=== PATIENT | female | born 1970 | race Two or more races ===

== ENCOUNTER 2017-11-09 18:28 | Inpatient (IN) | payer MEDICAID ==
[~2017-11-09] VITALS: Ht 157.5 cm; Wt 79.8 kg
[~2017-11-09 18:28] MED LIST: ALBU18; FURO40TA4; GABA300C10; HCTZ25T; INSLANTI; INSLISPI; LOSA50TA6; MET25T; NAP500T; POTA8TAB15; SEVE800T8 PO; [UNRECOGNIZED DRUG - CODE]; [UNRECOGNIZED DRUG - CODE]
[2017-11-09] MEDS ORDERED: ONDANSETRON HCL 4 MG/2 ML VIAL IV ONE (19:15)
[2017-11-09 19:40] LABS: Basophils # (auto) 0 uL; Basophils % (auto) 0.6 % (0.0-2.0); Eosinophils # (auto) 0.2 uL; Eosinophils % (auto) 3.5 % (0.0-7.0); Hematocrit 36.2 % (36.0-46.0); Hemoglobin 11.9 g/dL (12.2-16.2); Lymphocytes # (auto) 1.1 uL; Mean Corpuscular Hemoglobin 28.8 pg (28.0-32.0); Mean Corpuscular Hgb Conc. 32.8 g/dL (32.0-36.0); Mean Corpuscular Volume 87.7 fL (80.0-100.0); Monocytes # (auto) 0.2 uL; Neutrophils # (auto) 4.4 uL; Neutrophils % (auto) 73.9 % (37.0-80.0); Nucleated Red Blood Cells % 0.1 %; Platelet Count (auto) 244 10^3/uL (140-450); Red Blood Cells 4.13 10^6/uL (4.0-5.20); Red Cell Distribution Width 18.5 % (11.8-14.3); White Blood Cell 5.9 10^3/uL (4.4-10.8)
[2017-11-09] MEDS ORDERED: FUROSEMIDE 20 MG/2 ML VIAL IV ONE (19:45)
[2017-11-09 19:48] LABS: Alanine Aminotransferase 19 U/L (13-56); Albumin 3.5 g/dL (3.4-5.0); Anion Gap 19 (5-15); Aspartate Aminotransferase 19 U/L (15-37); BUN/Creatinine Ratio 10.1; Calcium 8.5 mg/dL (8.5-10.1); Carbon Dioxide 22 mmol/L (21-32); Chloride 96 mmol/L (98-107); GFR African American 7 mL/min; GFR Non-African American 6 mL/min; Glucose 100 mg/dL (74-106); Sodium 137 mmol/L (136-145)
[2017-11-09 19:52] LABS: INR 1.04 (0.9-1.15); Prothrombin Time 11.1 sec (9.27-12.13)
[2017-11-09 19:53] LABS: Alkaline Phosphatase 165 U/L (45-117); Bilirubin, Total 0.4 mg/dL (0.2-1.0); Blood Urea Nitrogen 83 mg/dL (7-18); Potassium 7.4 mmol/L (3.5-5.1); Total Protein 9.2 g/dL (6.4-8.2)
[2017-11-09] MEDS ORDERED: SODIUM BICARBONATE 8.4% INJ 50ML SYRINGE IV ONE (20:00)
[2017-11-09] MEDS ORDERED: SODIUM POLYSTYRENE SULF 15GM/60ML SUSP PO ONE (20:00)
[2017-11-09] MEDS ORDERED: DEXTROSE (50%) 50ML SYRG IV ONE (20:00)
[2017-11-09] MEDS ORDERED: InsuLIN REG 1unit/0.01ml Soln (100units/ml) IV ONE (20:00)
[2017-11-09] MEDS ORDERED: CALCIUM GLUC 4.65meq/50ml D5AE 50 ML IV ONE (20:00)
[2017-11-09 20:52] LABS: Urine Bacteria MOD /hpf (None Seen); Urine Blood 1+ /uL (Negative); Urine Specific Gravity 1.017 (1.001-1.035); Urine WBC 12 /hpf (0 - 5)
[2017-11-09] MEDS ORDERED: ONDANSETRON HCL 4 MG/2 ML VIAL IV PRN (22:15)
[2017-11-09] MEDS ORDERED: LORazepam 0.5 MG TAB PO PRN (22:15)
[2017-11-09] MEDS ORDERED: ALBUTEROL SULF 2.5 MG/0.5ML(0.5%) NEB SOLN NEB PRN (22:15)
[2017-11-09] MEDS: AMITRIPTYLINE HCL 25 MG TAB PO SCH (22:37)
[2017-11-09 23:22] VITALS: BP 179/101
[2017-11-10] VITALS (70 sets, daily range): BP systolic 100–200; BP diastolic 61–117
[2017-11-10] MEDS ORDERED: PROPOFOL 100 ML IV ONE (05:39)
[2017-11-10] MEDS ORDERED: PROPOFOL 100 ML IV SCH (05:42)
[2017-11-10 05:43] LABS: Basophils # (auto) 0 uL; Basophils % (auto) 0.6 % (0.0-2.0); Eosinophils # (auto) 0.1 uL; Eosinophils % (auto) 1.4 % (0.0-7.0); Hematocrit 33.9 % (36.0-46.0); Hemoglobin 11.1 g/dL (12.2-16.2); Lymphocytes # (auto) 1.1 uL; Lymphocytes % (auto) 17.3 % (10.0-50.0); Mean Corpuscular Hgb Conc. 32.9 g/dL (32.0-36.0); Mean Corpuscular Volume 88.4 fL (80.0-100.0); Monocytes # (auto) 0.3 uL; Neutrophils # (auto) 4.7 uL; Neutrophils % (auto) 75.7 % (37.0-80.0); Platelet Count (auto) 219 10^3/uL (140-450); Red Blood Cells 3.84 10^6/uL (4.0-5.20); Red Cell Distribution Width 18.1 % (11.8-14.3); White Blood Cell 6.3 10^3/uL (4.4-10.8)
[2017-11-10] MEDS: PROPOFOL 100 ML IV SCH ×5 (06:00→22:16)
[2017-11-10 06:08] LABS: BUN/Creatinine Ratio 10.3; Calcium 8.6 mg/dL (8.5-10.1)
[2017-11-10 06:12] LABS: Potassium 8.5 mmol/L (3.5-5.1)
[2017-11-10] MEDS ORDERED: InsuLIN REG 1unit/0.01ml Soln (100units/ml) IV ONE ×2 (06:30→13:15)
[2017-11-10] MEDS ORDERED: DEXTROSE (50%) 50ML SYRG IV ONE ×2 (06:30→13:15)
[2017-11-10] MEDS ORDERED: SODIUM POLYSTYRENE SULF 15GM/60ML SUSP PO ONE (06:30)
[2017-11-10] MEDS ORDERED: CALCIUM GLUC 4.65meq/50ml D5AE 50 ML IV ONE ×2 (06:30→13:15)
[2017-11-10] MEDS ORDERED: SODIUM BICARBONATE 8.4% INJ 50ML SYRINGE IV ONE ×2 (06:30→16:13)
[2017-11-10] MEDS ORDERED: ALBUTEROL SULF 2.5 MG/0.5ML(0.5%) NEB SOLN HHN STA (06:39)
[2017-11-10] MEDS ORDERED: MIDAZOLAM DRIP 50 mg/50mL 50 ML IV ONE (06:47)
[2017-11-10] MEDS: InsuLIN REG 1unit/0.01ml Soln (100units/ml) SC SCH ×4 (07:00→22:00)
[2017-11-10] MEDS: MIDAZOLAM DRIP 50 mg/50mL 50 ML IV SCH ×5 (07:02→17:03)
[2017-11-10] MEDS: ACCU-CHEK COMFORT CURVE STRIP VI SCH ×4 (07:11→22:16)
[2017-11-10] MEDS ORDERED: EPOETIN ALFA 3,000 UNIT/1 ML VIAL IV ONE ×2 (08:00→11:15)
[2017-11-10] MEDS: NIFEdipine ER 30 MG TAB PO SCH (10:00)
[2017-11-10] MEDS: GABAPENTIN 100 MG CAP PO SCH (12:20)
[2017-11-10] MEDS: cefTRIAXone 1GM/10ml IVPUSH 10 ML IV SCH (12:21)
[2017-11-10] MEDS ORDERED: EPOETIN ALFA 10,000 UNIT/1 ML VIAL IV ONE (13:00)
[2017-11-10] MEDS ORDERED: SODIUM BICARBONATE 8.4 % INJ 50ML VIAL IV ONE (13:15)
[2017-11-10] MEDS ORDERED: SODIUM POLYSTYRENE SULF 15GM/60ML SUSP NG ONE (13:15)
[2017-11-10] MEDS ORDERED: BUME1TAB PO (15:29)
[2017-11-10] MEDS ORDERED: LORA1TAB12 PO (15:35)
[2017-11-10] MEDS ORDERED: OME20GT GT (15:35)
[2017-11-10] MEDS ORDERED: LORA-654 GT (15:35)
[2017-11-10] MEDS ORDERED: NIFE60TA59 PO (15:35)
[2017-11-10] MEDS ORDERED: EPINEPHrine HCL 1 MG/10 ML SYRG IV ONE (16:13)
[2017-11-10] MEDS: AMITRIPTYLINE HCL 25 MG TAB PO SCH (22:16)
[2017-11-10] MEDS: DEXTROSE (50%) 50ML SYRG IV PRN (22:20)
[2017-11-11] VITALS (100 sets, daily range): BP systolic 70–177; BP diastolic 55–112
[2017-11-11] MEDS: PROPOFOL 100 ML IV SCH ×3 (02:34→10:45)
[2017-11-11] MEDS: MIDAZOLAM DRIP 50 mg/50mL 50 ML IV SCH ×2 (04:31→13:02)
[2017-11-11 04:47] LABS: Basophils # (auto) 0.1 uL; Basophils % (auto) 1.3 % (0.0-2.0); Eosinophils # (auto) 0.2 uL; Eosinophils % (auto) 3.9 % (0.0-7.0); Hematocrit 31.7 % (36.0-46.0); Hemoglobin 10.5 g/dL (12.2-16.2); Lymphocytes # (auto) 1.1 uL; Lymphocytes % (auto) 20.5 % (10.0-50.0); Mean Corpuscular Hgb Conc. 33.2 g/dL (32.0-36.0); Mean Corpuscular Volume 87.3 fL (80.0-100.0); Monocytes # (auto) 0.2 uL; Monocytes % (auto) 4.8 % (0.0-12.0); Neutrophils # (auto) 3.6 uL; Neutrophils % (auto) 69.5 % (37.0-80.0); Nucleated Red Blood Cells % 0.1 %; Platelet Count (auto) 178 10^3/uL (140-450); Red Blood Cells 3.63 10^6/uL (4.0-5.20); Red Cell Distribution Width 18.6 % (11.8-14.3); White Blood Cell 5.2 10^3/uL (4.4-10.8)
[2017-11-11 05:03] LABS: Albumin 2.6 g/dL (3.4-5.0); BUN/Creatinine Ratio 8.5; Calcium 7.9 mg/dL (8.5-10.1)
[2017-11-11 05:06] LABS: Bilirubin, Total 0.4 mg/dL (0.2-1.0); Total Protein 7.3 g/dL (6.4-8.2)
[2017-11-11] MEDS: InsuLIN REG 1unit/0.01ml Soln (100units/ml) SC SCH ×4 (05:55→22:00)
[2017-11-11] MEDS: ACCU-CHEK COMFORT CURVE STRIP VI SCH ×4 (05:55→22:00)
[2017-11-11] MEDS ORDERED: SODIUM CHL 0.9% 1000 ML BAG XX ONE (09:00)
[2017-11-11] MEDS: cefTRIAXone 1GM/10ml IVPUSH 10 ML IV SCH (09:16)
[2017-11-11] MEDS: NIFEdipine ER 30 MG TAB PO SCH (10:00)
[2017-11-11] MEDS ORDERED: PANTOPRAZOLE 40 MG/10 ML VIAL IV ONE (10:45)
[2017-11-11] MEDS ORDERED: EPOETIN ALFA 10,000 UNIT/1 ML VIAL IV ONE (11:00)
[2017-11-11] MEDS ORDERED: Novasource Renal 1 Liter GT SCH (12:15)
[2017-11-11] MEDS: GABAPENTIN 100 MG CAP PO SCH (14:05)
[2017-11-11] MEDS: AMITRIPTYLINE HCL 25 MG TAB PO SCH (22:00)
[2017-11-12] VITALS (94 sets, daily range): BP systolic 99–170; BP diastolic 57–93
[2017-11-12] MEDS: PROPOFOL 100 ML IV SCH ×2 (00:30→06:40)
[2017-11-12 03:36] LABS: Basophils # (auto) 0 uL; Basophils % (auto) 0.6 % (0.0-2.0); Eosinophils # (auto) 0.1 uL; Eosinophils % (auto) 1.5 % (0.0-7.0); Hematocrit 30.3 % (36.0-46.0); Lymphocytes # (auto) 0.9 uL; Lymphocytes % (auto) 11.2 % (10.0-50.0); Mean Corpuscular Hemoglobin 28.6 pg (28.0-32.0); Mean Corpuscular Volume 86.5 fL (80.0-100.0); Monocytes # (auto) 0.4 uL; Monocytes % (auto) 4.6 % (0.0-12.0); Neutrophils # (auto) 6.7 uL; Neutrophils % (auto) 82.1 % (37.0-80.0); Nucleated Red Blood Cells % 0.1 %; Platelet Count (auto) 176 10^3/uL (140-450); Red Cell Distribution Width 17.8 % (11.8-14.3); White Blood Cell 8.1 10^3/uL (4.4-10.8)
[2017-11-12 03:53] LABS: Albumin 2.4 g/dL (3.4-5.0); BUN/Creatinine Ratio 6.5; Calcium 7.3 mg/dL (8.5-10.1)
[2017-11-12 03:56] LABS: Bilirubin, Total 0.3 mg/dL (0.2-1.0); Total Protein 7.1 g/dL (6.4-8.2)
[2017-11-12] MEDS: InsuLIN REG 1unit/0.01ml Soln (100units/ml) SC SCH ×4 (06:43→21:53)
[2017-11-12] MEDS: ACCU-CHEK COMFORT CURVE STRIP VI SCH ×4 (06:43→21:53)
[2017-11-12] MEDS: cefTRIAXone 1GM/10ml IVPUSH 10 ML IV SCH (08:54)
[2017-11-12] MEDS: PANTOPRAZOLE 40 MG/10 ML VIAL IV SCH (09:57)
[2017-11-12] MEDS: GABAPENTIN 100 MG CAP PO SCH (09:57)
[2017-11-12] MEDS: NIFEdipine ER 30 MG TAB PO SCH (09:57)
[2017-11-12] MEDS: LABETALOL HCL 5 MG/ML ML 20ML VIAL IV PRN ×2 (10:20→21:42)
[2017-11-12] MEDS: DEXTROSE (50%) 50ML SYRG IV PRN (11:33)
[2017-11-12] MEDS: LORazepam 0.5 MG TAB PO PRN (16:15)
[2017-11-12] MEDS: AMITRIPTYLINE HCL 25 MG TAB PO SCH (21:44)
[2017-11-13] VITALS (70 sets, daily range): BP systolic 119–188; BP diastolic 63–87
[2017-11-13] MEDS: LABETALOL HCL 5 MG/ML ML 20ML VIAL IV PRN ×3 (00:36→20:32)
[2017-11-13 03:56] LABS: Basophils # (auto) 0 uL; Basophils % (auto) 0.4 % (0.0-2.0); Eosinophils # (auto) 0.2 uL; Eosinophils % (auto) 1.9 % (0.0-7.0); Hematocrit 27.9 % (36.0-46.0); Hemoglobin 9.3 g/dL (12.2-16.2); Lymphocytes # (auto) 1.2 uL; Lymphocytes % (auto) 12.8 % (10.0-50.0); Mean Corpuscular Hemoglobin 28.5 pg (28.0-32.0); Mean Corpuscular Hgb Conc. 33.2 g/dL (32.0-36.0); Monocytes # (auto) 0.5 uL; Monocytes % (auto) 5.4 % (0.0-12.0); Neutrophils # (auto) 7.5 uL; Neutrophils % (auto) 79.5 % (37.0-80.0); Nucleated Red Blood Cells % 0.1 %; Platelet Count (auto) 182 10^3/uL (140-450); Red Blood Cells 3.25 10^6/uL (4.0-5.20); Red Cell Distribution Width 17.2 % (11.8-14.3); White Blood Cell 9.4 10^3/uL (4.4-10.8)
[2017-11-13 04:11] LABS: Albumin 2.3 g/dL (3.4-5.0); BUN/Creatinine Ratio 7.3; Calcium 7.9 mg/dL (8.5-10.1); Potassium 4.2 mmol/L (3.5-5.1)
[2017-11-13 04:13] LABS: Bilirubin, Total 0.5 mg/dL (0.2-1.0)
[2017-11-13] MEDS: InsuLIN REG 1unit/0.01ml Soln (100units/ml) SC SCH ×3 (06:44→22:06)
[2017-11-13] MEDS: ACCU-CHEK COMFORT CURVE STRIP VI SCH ×3 (06:44→22:06)
[2017-11-13] MEDS: MIDAZOLAM DRIP 50 mg/50mL 50 ML IV SCH (06:56)
[2017-11-13] MEDS ORDERED: HYDROmorphone HCL 2 MG/ML VL IV PRN (07:45)
[2017-11-13] MEDS: NIFEdipine ER 30 MG TAB PO SCH (08:52)
[2017-11-13] MEDS: cefTRIAXone 1GM/10ml IVPUSH 10 ML IV SCH (08:59)
[2017-11-13] MEDS: MORPHINE SULF INJ 2 MG/ML SYRINGE 1ML IV PRN (09:20)
[2017-11-13] MEDS: GABAPENTIN 100 MG CAP PO SCH (09:27)
[2017-11-13] MEDS: PANTOPRAZOLE 40 MG/10 ML VIAL IV SCH (09:27)
[2017-11-13] MEDS ORDERED: EPOETIN ALFA 3,000 UNIT/1 ML VIAL IV ONE (13:00)
[2017-11-13] MEDS ORDERED: EPOETIN ALFA 2,000 UNIT/1 ML VIAL IV ONE (13:15)
[2017-11-13] MEDS: ACETAMINOPHEN 500 MG TAB PO PRN (20:15)
[2017-11-13] MEDS: AMITRIPTYLINE HCL 25 MG TAB PO SCH (22:05)
[2017-11-14] VITALS (11 sets, daily range): BP systolic 96–181; BP diastolic 54–95
[2017-11-14] MEDS: LABETALOL HCL 5 MG/ML ML 20ML VIAL IV PRN ×2 (03:44→06:21)
[2017-11-14] MEDS: ACCU-CHEK COMFORT CURVE STRIP VI SCH ×4 (06:21→21:43)
[2017-11-14] MEDS: InsuLIN REG 1unit/0.01ml Soln (100units/ml) SC SCH ×4 (06:22→21:44)
[2017-11-14 06:43] LABS: Basophils # (auto) 0 uL; Basophils % (auto) 0.4 % (0.0-2.0); Eosinophils # (auto) 0.3 uL; Eosinophils % (auto) 3.9 % (0.0-7.0); Hematocrit 29.3 % (36.0-46.0); Hemoglobin 9.6 g/dL (12.2-16.2); Lymphocytes # (auto) 1.1 uL; Lymphocytes % (auto) 17.4 % (10.0-50.0); Mean Corpuscular Hemoglobin 28.6 pg (28.0-32.0); Mean Corpuscular Hgb Conc. 32.8 g/dL (32.0-36.0); Mean Corpuscular Volume 87.3 fL (80.0-100.0); Monocytes # (auto) 0.4 uL; Monocytes % (auto) 6.5 % (0.0-12.0); Neutrophils # (auto) 4.7 uL; Neutrophils % (auto) 71.8 % (37.0-80.0); Platelet Count (auto) 219 10^3/uL (140-450); Red Blood Cells 3.36 10^6/uL (4.0-5.20); Red Cell Distribution Width 16.9 % (11.8-14.3); White Blood Cell 6.5 10^3/uL (4.4-10.8)
[2017-11-14 06:59] LABS: Calcium 8.2 mg/dL (8.5-10.1); Potassium 4.1 mmol/L (3.5-5.1)
[2017-11-14] MEDS: cefTRIAXone 1GM/10ml IVPUSH 10 ML IV SCH (09:25)
[2017-11-14] MEDS: PANTOPRAZOLE 40 MG/10 ML VIAL IV SCH (10:07)
[2017-11-14] MEDS: NIFEdipine ER 30 MG TAB PO SCH (10:08)
[2017-11-14] MEDS: GABAPENTIN 100 MG CAP PO SCH (10:09)
[2017-11-14] MEDS: ACETAMINOPHEN 500 MG TAB PO PRN (15:34)
[2017-11-14] MEDS: LORazepam 0.5 MG TAB PO PRN (20:43)
[2017-11-14] MEDS: AMITRIPTYLINE HCL 25 MG TAB PO SCH (21:44)
[2017-11-15] VITALS (7 sets, daily range): BP systolic 112–161; BP diastolic 56–121
[2017-11-15 05:44] LABS: Calcium 8.6 mg/dL (8.5-10.1); Potassium 5.2 mmol/L (3.5-5.1)
[2017-11-15 05:46] LABS: BUN/Creatinine Ratio 7.3
[2017-11-15] MEDS: ACETAMINOPHEN 500 MG TAB PO PRN (06:21)
[2017-11-15] MEDS: ACCU-CHEK COMFORT CURVE STRIP VI SCH ×4 (06:32→21:27)
[2017-11-15] MEDS: InsuLIN REG 1unit/0.01ml Soln (100units/ml) SC SCH ×4 (06:33→21:32)
[2017-11-15] MEDS: GABAPENTIN 100 MG CAP PO SCH (10:00)
[2017-11-15] MEDS: cefTRIAXone 1GM/10ml IVPUSH 10 ML IV SCH (11:00)
[2017-11-15] MEDS: PANTOPRAZOLE 40 MG/10 ML VIAL IV SCH (11:01)
[2017-11-15] MEDS: NIFEdipine ER 30 MG TAB PO SCH (14:15)
[2017-11-15] MEDS ORDERED: PROMETHAZINE-DM 5 ML ORAL SYRUP GT PRN (15:45)
[2017-11-15] MEDS: PROMETHAZINE-DM 5 ML ORAL SYRUP PO PRN ×2 (16:48→21:56)
[2017-11-15] MEDS: AMITRIPTYLINE HCL 25 MG TAB PO SCH (21:26)
[2017-11-15] MEDS: MORPHINE SULF INJ 2 MG/ML SYRINGE 1ML IV PRN (23:25)
[2017-11-16] VITALS: BP 148/85
[2017-11-16 03:34] VITALS: BP 151/85
[2017-11-16 05:12] LABS: Basophils # (auto) 0 uL; Basophils % (auto) 0.7 % (0.0-2.0); Eosinophils # (auto) 0.4 uL; Hematocrit 31.9 % (36.0-46.0); Hemoglobin 10.4 g/dL (12.2-16.2); Lymphocytes # (auto) 1.6 uL; Lymphocytes % (auto) 30.4 % (10.0-50.0); Mean Corpuscular Hemoglobin 28.1 pg (28.0-32.0); Mean Corpuscular Hgb Conc. 32.5 g/dL (32.0-36.0); Mean Corpuscular Volume 86.4 fL (80.0-100.0); Monocytes # (auto) 0.4 uL; Monocytes % (auto) 8.1 % (0.0-12.0); Neutrophils # (auto) 2.8 uL; Neutrophils % (auto) 53.8 % (37.0-80.0); Nucleated Red Blood Cells % 0.1 %; Platelet Count (auto) 288 10^3/uL (140-450); Red Cell Distribution Width 16.5 % (11.8-14.3); White Blood Cell 5.2 10^3/uL (4.4-10.8)
[2017-11-16 05:33] LABS: Albumin 2.5 g/dL (3.4-5.0); BUN/Creatinine Ratio 8.5; Bilirubin, Total 0.4 mg/dL (0.2-1.0); Calcium 8.9 mg/dL (8.5-10.1); Potassium 5.1 mmol/L (3.5-5.1); Total Protein 7.5 g/dL (6.4-8.2)
[2017-11-16] MEDS: ACCU-CHEK COMFORT CURVE STRIP VI SCH ×2 (06:36→12:03)
[2017-11-16] MEDS: InsuLIN REG 1unit/0.01ml Soln (100units/ml) SC SCH ×2 (06:40→12:03)
[2017-11-16] MEDS: MORPHINE SULF INJ 2 MG/ML SYRINGE 1ML IV PRN (08:42)
[2017-11-16] MEDS: PROMETHAZINE-DM 5 ML ORAL SYRUP PO PRN (08:42)
[2017-11-16 09:00] VITALS: BP 132/80
[2017-11-16 11:51] VITALS: BP 141/84
[2017-11-16] MEDS: PANTOPRAZOLE 40 MG/10 ML VIAL IV SCH (11:58)
[2017-11-16] MEDS: NIFEdipine ER 30 MG TAB PO SCH (12:01)
[2017-11-16] MEDS: cefTRIAXone 1GM/10ml IVPUSH 10 ML IV SCH (12:02)
[2017-11-16] MEDS: GABAPENTIN 100 MG CAP PO SCH (12:02)
[2017-11-16 16:00] VITALS: BP 142/81
== END 2017-11-16 18:54 | disposition home or self-care (01) | DRG 466 ==
LOC: ER 18:28 → TELE 18:29 → ICU WEST 11-10 08:13 → DOU IN ICU 11-14 06:01
PROVIDERS: ADMIT Nurse Practitioner Family; ATTEND Internal Medicine
PROC: 0BH17EZ Insertion of Endotracheal Airway into Trachea, Via Natural or Artificial Opening (ICD-10-PCS; principal; 2017-11-10)
PROC: 5A1945Z Respiratory Ventilation, 24-96 Consecutive Hours (ICD-10-PCS; 2017-11-10)
PROC: 5A1D70Z Performance of Urinary Filtration, Intermittent, Less than 6 Hours Per Day (ICD-10-PCS; 2017-11-10)
PROC: 5A09357 Assistance with Respiratory Ventilation, Less than 24 Consecutive Hours, Continuous Positive Airway Pressure (ICD-10-PCS; 2017-11-10)
PROC: 5A1D70Z Performance of Urinary Filtration, Intermittent, Less than 6 Hours Per Day (ICD-10-PCS; 2017-11-11)
PROC: 02HV33Z Insertion of Infusion Device into Superior Vena Cava, Percutaneous Approach (ICD-10-PCS; 2017-11-12)
PROC: 5A1D70Z Performance of Urinary Filtration, Intermittent, Less than 6 Hours Per Day (ICD-10-PCS; 2017-11-13)
PROC: 5A1D70Z Performance of Urinary Filtration, Intermittent, Less than 6 Hours Per Day (ICD-10-PCS; 2017-11-16)
DX: T82.898A Other specified complication of vascular prosthetic devices, implants and grafts, initial encounter (principal); N18.6 End stage renal disease; J96.01 Acute respiratory failure with hypoxia; I46.9 Cardiac arrest, cause unspecified; E43 Unspecified severe protein-calorie malnutrition; I13.2 Hypertensive heart and chronic kidney disease with heart failure and with stage 5 chronic kidney disease, or end stage renal disease; I48.91 Unspecified atrial fibrillation; E11.21 Type 2 diabetes mellitus with diabetic nephropathy; E87.70 Fluid overload, unspecified; E11.22 Type 2 diabetes mellitus with diabetic chronic kidney disease; E87.5 Hyperkalemia; N39.0 Urinary tract infection, site not specified; I50.9 Heart failure, unspecified; Y83.2 Surgical operation with anastomosis, bypass or graft as the cause of abnormal reaction of the patient, or of later complication, without mention of misadventure at the time of the procedure; Z79.4 Long term (current) use of insulin; Z79.899 Other long term (current) drug therapy; Z82.49 Family history of ischemic heart disease and other diseases of the circulatory system; Z83.3 Family history of diabetes mellitus; Z91.15 Patient's noncompliance with renal dialysis; Z99.2 Dependence on renal dialysis; Z68.32 Body mass index [BMI] 32.0-32.9, adult; Z90.49 Acquired absence of other specified parts of digestive tract
CPT/HCPCS: 36415; 36600; 51702; 70450; 71045; 80048; 80053; 81001; 82805; 82962; 83036; 83735; 83880; 84132; 84484; 84702; 85025; 85610; 85730; 87070; 87081; 87086; 87205; 90935; 92950; 93005; 93930; 94002; 94003; 94640; 94660; 94761; 96365; 96375; 97110; 97116; 97163; 97530; C9113; J0610; J1642; J1815; J2250; J2405; J2704; Q4081